=== PATIENT | male | born 1985 ===

== ENCOUNTER 2023-11-08 06:42 | Day surgery (SDC) | payer OTHER ==
[2023-11-08] MEDS ORDERED: fentaNYL CITRATE 50 MCG/ML AMPUL IV ONE (09:15)
[2023-11-08] MEDS ORDERED: DIPHENHYDRAMINE HCL 50 MG/ML VIAL 1ML IV ONE (09:15)
[2023-11-08] MEDS ORDERED: MIDAZOLAM HCL 2 MG/2 ML VIAL IV ONE (09:15)
== END 2023-11-08 10:40 | disposition home or self-care (01) ==
LOC: AMB-ENDOS 06:42 → CIR.AMB 06:42 → AMB-ENDOS 10:40 → CIR.AMB 13:45
PROVIDERS: ATTEND Surgery
DX: D12.6 Benign neoplasm of colon, unspecified (principal); K63.5 Polyp of colon; K57.30 Diverticulosis of large intestine without perforation or abscess without bleeding